=== PATIENT | male | born 1985 | race African-American/Black ===

== ENCOUNTER 2018-10-02 16:56 | Emergency (ER) | payer SELFPAY ==
[~2018-10-02] VITALS: Ht 177.8 cm; Wt 66.0 kg
[2018-10-03] MEDS ORDERED: IBUPROFEN 600MG TABLET PO ONE
[2018-10-03] MEDS ORDERED: ACETAMINOPHEN 325MG TABLET PO ONE
[2018-10-03 00:26] VITALS: BP 112/72
== END 2018-10-03 00:41 | disposition home or self-care (01) ==
LOC: ER 16:56
DX: R51 Headache (principal); F12.10 Cannabis abuse, uncomplicated; V89.2XXA Person injured in unspecified motor-vehicle accident, traffic, initial encounter; Y93.89 Activity, other specified; Y92.89 Other specified places as the place of occurrence of the external cause; Y99.8 Other external cause status
CPT/HCPCS: 99283